=== PATIENT | male | born 1955 | race Hispanic/Latino ===

== ENCOUNTER → 2017-11-06 | Day surgery (SDC) | payer OTHER ==
[~2017-11-06] MED LIST: ANALPRAM HC 2.530 GM; ARICEPT10 MG PO; CIPRO500 MG PO; CLONAZEPAM1 M1 PO; CYMBALTA30 MG PO; FENOFIBRATE145 MG PO; FENTANYL CITRATE/PF 100MCG/2 ML INJ ONE; FINASTERIDE5 MG PO; FLOMAX0.4 MG PO; HYDROXYZINE HCL10 MG PO; INDOMETHACIN25 MG PO; LACTATED RINGER'S 1,000 ML ONE; LIDOCAINE HCL 2% LOCAL INJ 5 ML SDV VIAL INJ ONE; LYRICA PO; MIDAZOLAM HCL 2 MG/2 ML VIAL ONE; MUPIROCIN22 GM; NAPROXEN500 MG PO; NEXIUM40 MG PO; NORCO 10-325 T1 EACH PO; NORCO 7.5-3251 EACH PO; OMEPRAZOLE40 MG PO; PROPOFOL IV EMULSION 10 MG/ML 50 ML VIAL ONE; SIMVASTATIN40 MG PO; SUCRALFATE1 GM PO; TOPROL XL50 MG PO; TYLENOL PO; ZOCOR40 MG PO
[2017-11-06 08:25] VITALS: BP 128/71
== END | disposition home or self-care (01) ==
LOC: OR 05:18
PROVIDERS: ATTEND Internal Medicine Gastroenterology
DX: K29.70 Gastritis, unspecified, without bleeding (principal); K31.7 Polyp of stomach and duodenum; K21.9 Gastro-esophageal reflux disease without esophagitis; K64.8 Other hemorrhoids; K44.9 Diaphragmatic hernia without obstruction or gangrene; E66.3 Overweight; I10 Essential (primary) hypertension; F17.290 Nicotine dependence, other tobacco product, uncomplicated; Z01.810 Encounter for preprocedural cardiovascular examination; Z68.29 Body mass index [BMI] 29.0-29.9, adult; Z80.0 Family history of malignant neoplasm of digestive organs
CPT/HCPCS: 43239; 45378; 93005; J2001; J2250; J7120; G0105

== ENCOUNTER → 2017-12-19 | Outpatient (CLI) | payer OTHER ==
[~2017-12-19] MED LIST changes: +DIATRIZOATE MEGL/DIATRIZOA SOD 30 ML BTL PO ONE; -FENTANYL CITRATE/PF 100MCG/2 ML INJ ONE; +IOPAMIDOL 370 MG/ML 200 ML INFUS..BTL INJ ONE; -LACTATED RINGER'S 1,000 ML ONE; -LIDOCAINE HCL 2% LOCAL INJ 5 ML SDV VIAL INJ ONE; -MIDAZOLAM HCL 2 MG/2 ML VIAL ONE; -PROPOFOL IV EMULSION 10 MG/ML 50 ML VIAL ONE; +SODIUM CHLORIDE 0.9% 50ML 0 ML ONE
[2017-12-19 11:01] LABS: BLOOD UREA NITROGEN 10 mg/dL (7-26); BUN/CREATININE RATIO 14 (6-25); EST GLOMERULAR FILTRATION RATE > 60 ML/MIN (60-)
--- NOTE | 2017-12-19 12:23 | Diagnostic Imaging Report ---
EXAM: CT Abdomen and Pelvis WITH contrast INDICATION: Abdominal pain/diarrhea COMPARISON: None. TECHNIQUE: Abdomen and Pelvis was scanned utilizing a multidetector helical scanner after administration of IV contrast. Coronal and sagittal reformations were obtained. IV CONTRAST: 100 mL Isovue-370 COMPLICATIONS: None RADIATION DOSE: Total DLP:510 mGy*cm Estimated effective dose: (DLP x 0.015 x size factor) mSv CTDIvol has been reviewed. It is below the limits set by the Radiation Protocol Committee (RPC). Appropriate CT dose reduction techniques were utilized. FINDINGS: Abdomen: Lung Bases: Minimal atelectasis. Solid Organs: Mild decreased attenuation of liver suggesting a ptosis. Cholecystectomy clips are present. There is a 17 mm lesion right adrenal gland with postcontrast Hounsfield units of 11. To small to characterize hypodensity present posterior aspect right kidney. Otherwise, solid organs unremarkable. Upper GI Tract: Gastric decompression limits evaluation. Prominence of the gastric wall presumed secondary to decompression. No small bowel obstructive changes. Vascularity: Mild aortic vascular calcifications with no aneurysm or dissection. Lymph Nodes: No suspicious adenopathy. Other: Tiny fat-containing umbilical hernia. Pelvis: Bladder: Unremarkable. Other: None. Colon: No acute colonic findings. Appendix not inflamed. Bones: Moderate L5-S1 degenerative disc disease. Presumed bone islands T11. IMPRESSION: 1. No acute findings in the abdomen or pelvis. 2. Hepatic steatosis. 3. Right adrenal adenoma. Signed by: Dr. Fortino Arcos MD on 12/19/2017 12:20 PM
== END ==
LOC: CT 09:36
PROVIDERS: ATTEND Internal Medicine Gastroenterology
DX: R10.11 Right upper quadrant pain (principal); Z86.010 Personal history of colon polyps
CPT/HCPCS: 36415; 74177; 82565; 84520; Q9967

== ENCOUNTER → 2020-11-22 | Day surgery (SDC) | payer MEDICARE ==
[2020-11-21 11:47] LABS: BASOPHILS # (AUTO) 0.1 (0.0-0.1); BASOPHILS % 0.3 % (0.0-1.0); EOSINOPHILS # (AUTO) 0.1 (0.0-0.4); EOSINOPHILS % 0.5 % (0.0-6.0); HEMATOCRIT 43.2 % (38.2-49.6); HEMOGLOBIN 13.6 g/dL (14.0-18.0); LYMPHOCYTES % 35.8 % (18.0-39.1); MEAN CORPUSCULAR HEMOGLOBIN 27.8 pg (28-32); MEAN CORPUSCULAR HGB CONC 31.5 g/dL (31-35); MEAN CORPUSCULAR VOLUME 88.3 fL (81-99); MONOCYTES # (AUTO) 1.7 (0.2-0.8); MONOCYTES % 8.5 % (4.4-11.3); NEUTROPHILS # (AUTO) 10.5 (2.1-6.9); NEUTROPHILS % 53.7 % (38.7-80.0); PLATELET COUNT 277 x10e3/uL (140-360); RED BLOOD COUNT 4.89 x10e6/uL (4.3-5.7); RED CELL DISTRIBUTION WIDTH 14.8 % (11.7-14.4)
[2020-11-21 11:56] LABS: CLARITY,URINE CLEAR (CLEAR); COLOR,URINE YELLOW (YELLOW)
[2020-11-21 11:57] LABS: KETONES,URINE TRACE (NEGATIVE); LEUKOCYTE ESTERASE ,URINE NEGATIVE (NEGATIVE); NITRITE,URINE NEGATIVE (NEGATIVE); PROTEIN,URINE DIPSTICK TRACE (NEGATIVE); URINE UROBILINOGEN 0.2 mg/dL (0.2 - 1)
[2020-11-21 12:05] LABS: ALBUMIN/GLOBULIN RATIO 1.3 (0.8-2.0); ANION GAP 13.7 mmol/L (8-16); CALCIUM 9.4 mg/dL (8.4-10.2); CREATININE, SERUM 0.68 mg/dL (0.72-1.25); POTASSIUM 3.7 mmol/L (3.5-5.1)
[~2020-11-22] MED LIST changes: +ASPIRIN81 MG PO; +BUPIVACAINE HCL 0.5% INJ 30 ML VIAL INJ ONE; +CRESTOR10 MG PO; +CYCLOBENZAPRINE10 MG PO; -DIATRIZOATE MEGL/DIATRIZOA SOD 30 ML BTL PO ONE; +FISH OIL 1,0001 EAC2 PO; +HYDROXYZINE HCL25 MG PO; +IBUPROFEN800 MG PO; -IOPAMIDOL 370 MG/ML 200 ML INFUS..BTL INJ ONE; +NEOSTIGMINE 1 MG/ML 10ML VIAL ONE; -SODIUM CHLORIDE 0.9% 50ML 0 ML ONE; +SODIUM CHLORIDE 0.9% 50ML 100 ML ONE; +ULTRAM50 MG PO
[2020-11-22 14:25] VITALS: BP 133/76
== END | disposition home or self-care (01) ==
LOC: OR 11:33
PROVIDERS: ATTEND Urology
DX: A63.0 Anogenital (venereal) warts (principal); M54.9 Dorsalgia, unspecified; E78.00 Pure hypercholesterolemia, unspecified; F17.200 Nicotine dependence, unspecified, uncomplicated; Z01.810 Encounter for preprocedural cardiovascular examination; Z01.812 Encounter for preprocedural laboratory examination; Z01.818 Encounter for other preprocedural examination; Z20.822 Contact with and (suspected) exposure to COVID-19; Z79.82 Long term (current) use of aspirin
CPT/HCPCS: 36415; 54057; 71046; 80053; 81003; 85025; 93005; J0690; J2710; U0002

== ENCOUNTER 2021-09-26 18:19 | Emergency (ER) | payer MEDICARE, OTHER ==
[~2021-09-26] VITALS: Ht 160 cm; Wt 85.7 kg
[~2021-09-26 18:19] MED LIST changes: -BUPIVACAINE HCL 0.5% INJ 30 ML VIAL INJ ONE; -NEOSTIGMINE 1 MG/ML 10ML VIAL ONE; -SODIUM CHLORIDE 0.9% 50ML 100 ML ONE
[2021-09-26] MEDS ORDERED: KETOROLAC TROMETHAMINE 30 MG/ML VIAL IM STA (18:30)
[2021-09-26] MEDS ORDERED: CYCLOBENZAPRINE HCL 10 MG TAB PO ONE (18:30)
[2021-09-26] MEDS ORDERED: CYCLOBENZAPRINE10 MG PO (20:02)
[2021-09-26 20:17] VITALS: BP 149/75
== END 2021-09-26 20:15 | disposition home or self-care (01) ==
LOC: ER 19:31
DX: M54.50 Low back pain, unspecified (principal); V43.52XA Car driver injured in collision with other type car in traffic accident, initial encounter; Y92.488 Other paved roadways as the place of occurrence of the external cause; E78.5 Hyperlipidemia, unspecified; M54.9 Dorsalgia, unspecified; G89.29 Other chronic pain
CPT/HCPCS: 72100; 73502; 99283; J1885